=== PATIENT | female | born 2000 | race Two or more races ===

== ENCOUNTER 2024-11-25 14:02 | Outpatient (RCR) | payer OTHER, SELFPAY | END 2024-12-27 13:32 | disposition home or self-care (01) | LOC: HO.PT 14:02 | PROVIDERS: PCP Student in an Organized Health Care Education/Training Program; Visit Provider Advanced Practice Midwife | DX: M99.05 Segmental and somatic dysfunction of pelvic region (principal) | CPT/HCPCS: 97112; 97140; 97161 ==